=== PATIENT | female | born 1965 | race Hispanic/Latino ===

== ENCOUNTER 2020-07-16 09:52 | Day surgery (SDC) | payer MEDICARE ==
[2020-07-16] MEDS ORDERED: SODIUM CHLORIDE IRRI 1000 ML 1 ML, .VANCOMYCIN VIAL 1,000 MG IR ONE (11:30)
--- NOTE | 2020-07-16 11:31 | Anesthesia Consultation ---
Anesthesia Consult and Med Hx Date of service: 07/16/20 - Airway Anesthetic Teeth Evaluation: Poor ROM Head & Neck: Adequate Mental/Hyoid Distance: Adequate Mallampati Class: Class I Intubation Access Assessment: Good - Pulmonary Exam CTA: Yes - Pre-Operative Health Status ASA Pre-Surgery Classification: ASA4 Proposed Anesthetic Plan: MAC - Pulmonary Hx Smoking: No Hx Asthma: Yes Hx Sleep Apnea: Yes (Does not use CPAP machine) - Cardiovascular System Hx Hypertension: No Hx Cardia Arrhythmia: Yes (Hx. Bradycardia; Symptomatic tarchycardia) Hx Pacemaker: Yes (Dual Chamber, Endocarditis) Hx Heart Murmur: No - Central Nervous System Hx Seizures: Yes (4 months ago) Hx Psychiatric Problems: Yes (Anorexia, Anxiety/Depression) - Gastrointestinal Hx Gastroesophageal Reflux Disease: Yes (improved with s/p jenniffer procedure) - Endocrine Hx Renal Disease: No Hx Cirrhosis: No Hx Insulin Dependent Diabetes: No Hx Non-Insulin Dependent Diabetes: No (Hx. Hypoglycemia) Hx Thyroid Disease: No - Hematic Hx Anemia: Yes - Other Systems Hx Alcohol Use: No Hx Substance Use: No (On MD prescribed methadone) Hx Cancer: No Hx Obesity: Yes - Additional Comments Anesthesia Medical History Comments: Patient denied previous ansthesia complications but admitted hx. of high tolerance to anesthetics. She also has a hx. of Von Willebrand's Disease.
--- NOTE | 2020-07-16 11:47 | Anesthesia Day of Surgery ---
Anesthesia Day of Surgery - Day of Surgery Patient Examined: Yes Patient H&P Reviewed: Yes Patient is NPO: Yes Beta Blockers: No Cardiac Clearance: No Pulmonary Clearance: No
[2020-07-16 12:11] LABS: Basophils # (Auto) 0.1 K/mm3 (0.0-0.1); Basophils % (Auto) 1.2 % (0.0-1.8); Eosinophils # (Auto) 0.1 K/mm3 (0.0-0.4); Eosinophils % (Auto) 1.6 % (0.0-4.3); Hematocrit 35.2 % (30.3-42.9); Hemoglobin 11.8 gm/dl (10.1-14.3); Lymphocytes % (Auto) 40.8 % (13.4-35.0); Mean Corpuscular HGB Conc 34 % (30-34); Mean Corpuscular Volume 97 fl (79-97); Monocytes % (Auto) 13.5 % (0.0-7.3); Platelet Count 309 K/mm3 (140-440); Red Blood Count 3.64 M/mm3 (3.65-5.03); Red Cell Distribution Width 14.1 % (13.2-15.2)
[2020-07-16] MEDS: SODIUM CHLORIDE 0.45% 1000 ML 1,000 ML IV SCH ×3 (12:23→14:24)
[2020-07-16 12:27] LABS: INR 0.94 (0.87-1.13); Partial Thromboplastin Time 21.5 Sec. (24.2-36.6)
[2020-07-16 12:31] LABS: Calcium 8.8 mg/dL (8.4-10.2)
[2020-07-16] MEDS ORDERED: HYDROmorphone 1 MG/1 ML INJ ONE (12:35)
[2020-07-16] MEDS ORDERED: propofoL 200 MG/20 ML VIAL IV ONE ×4 (12:36)
[2020-07-16] MEDS ORDERED: MIDAZOLAM 2 MG/2 ML INJ ONE (12:36)
[2020-07-16] MEDS ORDERED: KETAMINE/STERILE WATER 50 MG/ML SYRINGE ONE (12:37)
[2020-07-16] MEDS ORDERED: LIDOCAINE MPF (2%) 20 MG/1 ML VIAL 5 ML ONE (12:38)
[2020-07-16] MEDS ORDERED: ePHEDrine SULFATE 50 MG/1 ML INJ ONE (12:38)
[2020-07-16] MEDS ORDERED: DESMOPRESSIN ACETATE 23 MCG in SODIUM CHLORIDE 0.9% 50 ML IV ONE (12:50)
[2020-07-16] MEDS ORDERED: SODIUM CHLORIDE IRRI 500 ML 500 ML IR ONE (12:57)
[2020-07-16] MEDS ORDERED: BUPIVACAINE/PF (0.5%) 5 MG/1 ML 30 ML VIAL INFILTRATI ONE (12:58)
[2020-07-16] MEDS ORDERED: LIDOCAINE (1%) 10 MG/1 ML VIAL 20 ML MDV ONE ×2 (12:58→14:13)
[2020-07-16] MEDS ORDERED: ceFAZolin/Water 2 GM/20 ML 2 GM/20 ML SYRINGE IV ONE (12:58)
[2020-07-16] MEDS ORDERED: SODIUM CHLORIDE 0.9% 1000 ML 1,000 ML ONE (13:00)
--- NOTE | 2020-07-16 13:00 | Progress Note ---
Subjective Date of service: 07/16/20 Interval history: PRELIM DATA REVIEW CONSULT TO FOLLOW 55yo woman with h/o anorexia or bulemia, h/o pacemaker placement for bradycardia mention of Von Willebrand disorder-->has received ddavp before procedures (I don't have history of bleeding, but I spoke with Dr. Yarbrough-her hem atologist in the past) She came for an outpatient procedure-pacemaker change for battery EOL. Labs reviewed. Looks OK for procedure based on what I can tell from data review. plan: ddAVP before procedure. OK for procedure after ddAVP from hematology perspective. Laboratory Last Values WBC 7.3 K/mm3 (4.5-11.0) 07/16/20 12:00 RBC 3.64 M/mm3 (3.65-5.03) L 07/16/20 12:00 Hgb 11.8 gm/dl (10.1-14.3) 07/16/20 12:00 Hct 35.2 % (30.3-42.9) 07/16/20 12:00 MCV 97 fl (79-97) 07/16/20 12:00 MCH 33 pg (28-32) H 07/16/20 12:00 MCHC 34 % (30-34) 07/16/20 12:00 RDW 14.1 % (13.2-15.2) 07/16/20 12:00 Plt Count 309 K/mm3 (140-440) 07/16/20 12:00 Lymph % (Auto) 40.8 % (13.4-35.0) H 07/16/20 12:00 [place] % (Auto) 13.5 % (0.0-7.3) H 07/16/20 12:00 Eos % (Auto) 1.6 % (0.0-4.3) 07/16/20 12:00 Baso % (Auto) 1.2 % (0.0-1.8) 07/16/20 12:00 Lymph # 3.0 K/mm3 (1.2-5.4) 07/16/20 12:00 [place] # 1.0 K/mm3 (0.0-0.8) H 07/16/20 12:00 Eos # 0.1 K/mm3 (0.0-0.4) 07/16/20 12:00 Baso # 0.1 K/mm3 (0.0-0.1) 07/16/20 12:00 Seg Neutrophils % 42.9 % (40.0-70.0) 07/16/20 12:00 Seg Neutrophils # 3.1 K/mm3 (1.8-7.7) 07/16/20 12:00 PT 12.7 Sec. (12.2-14.9) 07/16/20 12:00 INR 0.94 (0.87-1.13) 07/16/20 12:00 APTT 21.5 Sec. (24.2-36.6) L 07/16/20 12:00 Sodium 139 mmol/L (137-145) 07/16/20 12:00 Potassium 4.1 mmol/L (3.6-5.0) 07/16/20 12:00 Chloride 101.8 mmol/L (98-107) 07/16/20 12:00 Carbon Dioxide 25 mmol/L (22-30) 07/16/20 12:00 Anion Gap 16 mmol/L 07/16/20 12:00 BUN 19 mg/dL (7-17) H 07/16/20 12:00 Creatinine 1.2 mg/dL (0.6-1.2) 07/16/20 12:00 Estimated GFR 46 ml/min 07/16/20 12:00 BUN/Creatinine Ratio 16 % 07/16/20 12:00 Glucose 84 mg/dL (65-100) 07/16/20 12:00 Calcium 8.8 mg/dL (8.4-10.2) 07/16/20 12:00 Iron 134 ug/dL (37-170) 07/16/20 12:00 Objective - Constitutional Vitals: Vital Signs - 12hr 07/16/20 07/16/20 11:01 12:09 Temperature 98.3 F Pulse Rate 78 Respiratory 14 Rate Respiratory 12 Rate [Back] Blood Pressure 128/75 [Right] O2 Sat by Pulse 98 Oximetry - Labs CBC & Chem 7: 07/16/20 12:00 07/16/20 12:00 Labs: Abnormal lab results 07/16/20 07/16/20 07/16/20 Range/Units 12:00 12:00 12:00 RBC 3.64 L (3.65-5.03) M/mm3 MCH 33 H (28-32) pg Lymph % (Auto) 40.8 H (13.4-35.0) % [place] % (Auto) 13.5 H (0.0-7.3) % [place] # 1.0 H (0.0-0.8) K/mm3 APTT 21.5 L (24.2-36.6) Sec. BUN 19 H (7-17) mg/dL Medications & Allergies - Medications Allergies/Adverse Reactions: Allergies metoclopramide HCl [From Reglan] Allergy (Verified 04/08/15 09:33) Unknown flight deck officer/Angela Gaelana prochlorperazine edisylate [From Compazine] Allergy (Verified 04/08/15 09:33) Unknown prochlorperazine maleate [From Compazine] Allergy (Verified 04/08/15 09:33) Unknown Home Medications: Home Medications Medication Instructions Recorded Confirmed Last Taken Type Estradiol 2 mg PO DAILY 05/06/16 08/25/17 08/24/17 History 1 mg Methadone [Dolophine] 10 mg PO DAILY PRN 08/03/16 08/25/17 08/23/17 History 10 mg HYDROmorphone [Dilaudid] 1 mg PO Q4HR #45 tablet 08/25/17 Unknown Rx levoFLOXacin [Levaquin] 750 mg PO QDAY #7 tablet 08/25/17 Unknown Rx Active Medications: Generic Name Dose Route Start Last Admin Trade Name Freq PRN Reason Stop Dose Admin Sodium Chloride 1,000 mls @ 50 mls/hr 07/16/20 11:00 07/16/20 12:23 Nacl 0.45% 1000 Ml IV 50 mls/hr DIRECT SOFIA Administration Desmopressin Acetate 23 mcg/ 55.75 mls @ 100 mls/hr 07/16/20 12:50 Sodium Chloride IV 07/16/20 13:23 ONCE ONE
[2020-07-16] MEDS ORDERED: .VANCOMYCIN VIAL 1,000 MG in SODIUM CHLORIDE IRRI 1000 ML 1,000 ML IRRIGATION ONE (14:25)
[2020-07-16] MEDS ORDERED: HYDROcodone/ACETAMINOPHEN 5-325 MG TAB PO PRN (15:19)
[2020-07-16] MEDS ORDERED: PHENYLEPHRINE/NS 1,000 MCG/10 ML SYRINGE (OR USE) IV ONE (15:25)
--- NOTE | 2020-07-16 16:41 | Post Anesthesia Evaluation ---
- Post Anesthesia Evaluation Patient Participated: Yes Airway Patent: Yes Stable Respiratory Function: Yes Nausea/Vomiting: No Temp > 96.8F: Yes Pain Manageable: Yes Adequeate Hydration: Yes Anesthesia Complications: No Block Receding Appropriately: Not Applicable Patient on Ventilator: No
[2020-07-16 17:38] VITALS: BP 120/71
--- NOTE | 2020-07-16 18:00 | Consultation ---
History of Present Illness - Reason for Consult bleeding tendency Requesting physician: LUPE MARTIN - History of Present Illness 55yo woman with h/o anorexia or bulemia, h/o pacemaker placement for bradycardia mention of Von Willebrand disorder-->has received ddavp before procedures (I don't have history of bleeding, but I spoke with Dr. Yarbrough-her lamp shade maker in the past) She came for an outpatient procedure-pacemaker change for battery EOL. per rose, she has h/o VWD, but never had signif bleeding. PMH notable for Oswaldo surgery for GERD (details unavailable) All: phenergan and compazine TODY she had ddVAP 20 mcg IV before procedure-->according to those involved, she had pacemaker gen change without bleeding or complication. She was discharged after the procedure. labs included nl cbc and nl coags iron sat pending, but iron level 137 (nl) IMPRESSION: possible bleeding tendency, now requiring invasive procedure REC/PLAN: S/P ddAVP before procedure future labs may include VWD testing and factor eleven testing Vital Signs Temp Pulse Resp BP Pulse Ox 97.2 F L 83 12 120/71 99 07/16/20 15:00 07/16/20 17:00 07/16/20 17:00 07/16/20 17:00 07/16/20 17:00 Temperature -Last 24 Hours Temperature 97.2 F Temperature 98.3 F Laboratory Last Values WBC 7.3 K/mm3 (4.5-11.0) 07/16/20 12:00 RBC 3.64 M/mm3 (3.65-5.03) L 07/16/20 12:00 Hgb 11.8 gm/dl (10.1-14.3) 07/16/20 12:00 Hct 35.2 % (30.3-42.9) 07/16/20 12:00 MCV 97 fl (79-97) 07/16/20 12:00 MCH 33 pg (28-32) H 07/16/20 12:00 MCHC 34 % (30-34) 07/16/20 12:00 RDW 14.1 % (13.2-15.2) 07/16/20 12:00 Plt Count 309 K/mm3 (140-440) 07/16/20 12:00 Lymph % (Auto) 40.8 % (13.4-35.0) H 07/16/20 12:00 [place] % (Auto) 13.5 % (0.0-7.3) H 07/16/20 12:00 Eos % (Auto) 1.6 % (0.0-4.3) 07/16/20 12:00 Baso % (Auto) 1.2 % (0.0-1.8) 07/16/20 12:00 Lymph # 3.0 K/mm3 (1.2-5.4) 07/16/20 12:00 [place] # 1.0 K/mm3 (0.0-0.8) H 07/16/20 12:00 Eos # 0.1 K/mm3 (0.0-0.4) 07/16/20 12:00 Baso # 0.1 K/mm3 (0.0-0.1) 07/16/20 12:00 Seg Neutrophils % 42.9 % (40.0-70.0) 07/16/20 12:00 Seg Neutrophils # 3.1 K/mm3 (1.8-7.7) 07/16/20 12:00 PT 12.7 Sec. (12.2-14.9) 07/16/20 12:00 INR 0.94 (0.87-1.13) 07/16/20 12:00 APTT 21.5 Sec. (24.2-36.6) L 07/16/20 12:00 Sodium 139 mmol/L (137-145) 07/16/20 12:00 Potassium 4.1 mmol/L (3.6-5.0) 07/16/20 12:00 Chloride 101.8 mmol/L (98-107) 07/16/20 12:00 Carbon Dioxide 25 mmol/L (22-30) 07/16/20 12:00 Anion Gap 16 mmol/L 07/16/20 12:00 BUN 19 mg/dL (7-17) H 07/16/20 12:00 Creatinine 1.2 mg/dL (0.6-1.2) 07/16/20 12:00 Estimated GFR 46 ml/min 07/16/20 12:00 BUN/Creatinine Ratio 16 % 07/16/20 12:00 Glucose 84 mg/dL (65-100) 07/16/20 12:00 Calcium 8.8 mg/dL (8.4-10.2) 07/16/20 12:00 Iron 134 ug/dL (37-170) 07/16/20 12:00 Medications and Allergies Allergies Allergy/AdvReac Type Severity Reaction Status Date / Time metoclopramide HCl Allergy Unknown Verified 04/08/15 09:33 [From Reglan] prochlorperazine edisylate Allergy Unknown Verified 04/08/15 09:33 [From Compazine] prochlorperazine maleate Allergy Unknown Verified 04/08/15 09:33 [From Compazine] Home Medications Medication Instructions Recorded Confirmed Last Taken Type Estradiol 2 mg PO DAILY 05/06/16 08/25/17 08/24/17 History 1 mg Methadone [Dolophine] 10 mg PO DAILY PRN 08/03/16 08/25/17 08/23/17 History 10 mg HYDROmorphone [Dilaudid] 1 mg PO Q4HR #45 tablet 08/25/17 Unknown Rx levoFLOXacin [Levaquin] 750 mg PO QDAY #7 tablet 08/25/17 Unknown Rx cephALEXin [Keflex] 500 mg PO Q12HR #14 cap 07/16/20 Unknown Rx Exam - Constitutional Vitals: Temp Pulse Resp BP Pulse Ox 97.2 F L 83 12 120/71 99 07/16/20 15:00 07/16/20 17:00 07/16/20 17:00 07/16/20 17:00 07/16/20 17:00 Results - Labs CBC & Chem 7: 07/16/20 12:00 07/16/20 12:00 Labs: Abnormal lab results 07/16/20 07/16/20 07/16/20 Range/Units 12:00 12:00 12:00 RBC 3.64 L (3.65-5.03) M/mm3 MCH 33 H (28-32) pg Lymph % (Auto) 40.8 H (13.4-35.0) % [place] % (Auto) 13.5 H (0.0-7.3) % [place] # 1.0 H (0.0-0.8) K/mm3 APTT 21.5 L (24.2-36.6) Sec. BUN 19 H (7-17) mg/dL
--- NOTE | 2020-07-23 20:07 | Electrophysiological Studies ---
PROCEDURE: Dual-chamber pacemaker generator change out. PREPROCEDURE DIAGNOSIS: Pacemaker at [facility]. DESCRIPTION OF PROCEDURE: The patient was brought to the procedure/labeler. The patient was prepped and draped in the usual sterile fashion. Local anesthesia was obtained with lidocaine. Antibiotics were given prior to the procedure for surgical prophylaxis. A 3 cm incision was made over near the left deltopectoral groove. The fibrous capsule was incised and the old device was removed from the pocket. The leads were inspected and had intact insulation and conductors. Pacing thresholds and electrogram was satisfactory. The pocket was irrigated with antibiotic-containing solution. Adequate electrical parameters were confirmed prior to the attachment of the pacemaker pulse generator to the leads. The leads and generator were then inserted into the pocket. Closure was obtained using 2-0 Vicryl, 3-0 Vicryl, and 4-0 Vicryl for a subcuticular closure. The incision was then protected with Steri-Strips, gauze, and a clear adhesive dressing was applied. COMPLICATIONS: None. ASSESSMENT: 1. Successful dual-chamber permanent pacemaker generator change out. PLAN: 1. Incision check in 8-10 days. 2. Follow up in device clinic. JOB# [id number] FÉLIX/MAGI
== END 2020-07-16 17:46 | disposition home or self-care (01) ==
LOC: CATHLABREC 09:52
PROVIDERS: ATTEND Internal Medicine Cardiovascular Disease
DX: Z45.010 Encounter for checking and testing of cardiac pacemaker pulse generator [battery] (principal); D64.9 Anemia, unspecified; K21.9 Gastro-esophageal reflux disease without esophagitis; F32.9 Major depressive disorder, single episode, unspecified; F41.9 Anxiety disorder, unspecified; Z79.899 Other long term (current) drug therapy; Z90.49 Acquired absence of other specified parts of digestive tract; Z90.710 Acquired absence of both cervix and uterus; Z87.440 Personal history of urinary (tract) infections; Z98.890 Other specified postprocedural states; Z86.59 Personal history of other mental and behavioral disorders; Z86.39 Personal history of other endocrine, nutritional and metabolic disease; Z86.79 Personal history of other diseases of the circulatory system; Z86.2 Personal history of diseases of the blood and blood-forming organs and certain disorders involving the immune mechanism; Z88.8 Allergy status to other drugs, medicaments and biological substances
CPT/HCPCS: 33228; 36415; 80048; 83540; 85025; 85610; 85730; 93005; C1785; J0690; J1170; J2250; J2370; J2597; J2704; J3370; J3490; J7030